=== PATIENT | female | born 1965 ===

== ENCOUNTER 2016-12-07 13:33 | Emergency (ER) | payer MEDICAID ==
[2016-12-07 13:34] VITALS: BMI 27.3
[2016-12-07 13:43] VITALS: BP 115/73; RESP 16; O2SAT 98
--- NOTE | 2016-12-07 14:05 | ED PDOC ---
Arrival/HPI - General Chief Complaint: Back Pain Time Seen by Provider: 12/07/16 13:50 Historian: Patient - History of Present Illness Narrative History of Present Illness (Text): 12/07/16 14:05 51yr old female presents today with left sided low back pain radiating into the left leg x 1 week. pt states one week ago she was bending over to get something out of the freezer and felt pain in the low back. pt state the pain was minimal at the time and has been gradually increasing. pt states the pain is now pressure like sharp and stabbing, radiating into the left leg and worse with movement. pt states while at rest the pain is very minimal but the moment she tries to twist or turn the pain increases. pt has been taking motrin for the first few days and tylenol since without improvement in the symptoms. denies bladder or bowel incontinence. denies numbness, weakness, or tingling in the extremities. no other complaints. Past Medical History - Provider Review Nursing Documentation Reviewed: Yes - Travel History Have you recently traveled outside [place] w/in the past 3 mons?: No - Infectious Disease Hx of Infectious Diseases: None - Tetanus Immunization Tetanus Immunization: Unknown - Reproductive Menopause: No - Past Medical History Past Medical History: No Previous - Cardiac Hx Cardiac Disorders: Yes Hx Hypertension: Yes - Pulmonary Hx Respiratory Disorders: No - Neurological Hx Neurological Disorder: No - HEENT Hx HEENT Disorder: No - Renal Hx Renal Disorder: No - Endocrine/Metabolic Hx Endocrine Disorders: No - Hematological/Oncological Hx Blood Disorders: Yes Hx Hepatitis C: Yes - Integumentary Hx Dermatological Disorder: No - Musculoskeletal/Rheumatological Hx Musculoskeletal Disorders: No - Gastrointestinal Hx Gastrointestinal Disorders: No - Genitourinary/Gynecological Hx Genitourinary Disorders: No - Psychiatric Hx Psychophysiologic Disorder: No Hx Depression: No Hx Emotional Abuse: No Hx Physical Abuse: No Hx Substance Use: No - Surgical History Hx Section: Yes Hx Tubal Ligation: Yes - Suicidal Assessment Feels Threatened In Home Enviroment: No Family/Social History - Physician Review Nursing Documentation Reviewed: Yes Family/Social History: Unknown Family HX Smoking Status: Never Smoked Hx Alcohol Use: No Hx Substance Use: No Hx Substance Use Treatment: No Allergies/Home Meds Allergies/Adverse Reactions: Allergies No Known Allergies Allergy (Verified 04/12/15 23:20) Home Medications: Home Meds Medication Instructions Recorded Confirmed Lisinopril [Zestril] 10 mg PO DAILY 12/07/16 12/07/16 Review of Systems - Review of Systems Constitutional: absent: Fatigue, Fevers Respiratory: absent: SOB, Cough Cardiovascular: absent: Chest Pain, Palpitations Gastrointestinal: absent: Abdominal Pain, Constipation, Diarrhea, Nausea, Vomiting Genitourinary Female: absent: Dysuria, Frequency, Hematuria Musculoskeletal: Back Pain. absent: Neck Pain Skin: absent: Rash, Pruritis Neurological: absent: Headache Physical Exam Vital Signs Reviewed: Yes Vital Signs Temp Pulse Resp BP Pulse Ox 12/07/16 15:16 98.9 F 95 H 16 98 12/07/16 13:40 99.1 F 97 H 16 115/73 98 Temperature: Afebrile Blood Pressure: Normal Pulse: Regular Respiratory Rate: Normal Appearance: Positive for: Well-Appearing, Non-Toxic, Comfortable Pain Distress: None Mental Status: Positive for: Alert and Oriented X 3 - Systems Exam Head: Present: Atraumatic Mouth: Present: Moist Mucous Membranes Neck: Present: Normal Range of Motion Respiratory/Chest: Present: Clear to Auscultation, Good Air Exchange. No: Respiratory Distress, Accessory Muscle Use Cardiovascular: Present: Regular Rate and Rhythm, Normal S1, S2. No: Murmurs Abdomen: No: Tenderness Back: Present: Normal Inspection, Paraspinal Tenderness (+ left sided low lumbar paraspinal tenderness; + sciatic foramen tenderness on left; ). No: Midline Tenderness Upper Extremity: Present: Normal ROM Lower Extremity: Present: Normal ROM. No: Swelling Neurological: Present: GCS=15 Skin: Present: Warm, Dry, Normal Color. No: Rashes Psychiatric: Present: Alert, Oriented x 3 Medical Decision Making ED Course and Treatment: 12/07/16 14:43 Patient nontoxic well-appearing in no distress with stable vital signs. Toradol, Flexeril, xray LS spine; no fracture Patient reassessment: Feeling better with medications ambulating with a steady gait. Muscle strength 5 out of 5 bilaterally. I advised to followup with the orthopedist within the next 2 days. Return if symptoms worsen persist or new symptoms develop will given 5 pills of percocet for break through pain; pt was advised of risk of addiction. Patient verbalizes understanding of discharge instructions and need for immediate followup. all aspects of this case were discussed the attending of record. Impression: Back pain Motrin every 6 hours as needed for pain Flexeril one tablet every 8 hours as needed for muscle spasms: May cause drowsiness Followup with the orthopedist within the next 2 days Followup with primary care physician within the next 2 days Return if symptoms worsen persist or if new symptoms develop - RAD Interpretation Radiology Orders: 12/07/16 14:05 LS SPINE WITH OBL > 18 YRS OLD [RAD] Stat - Medication Orders Current Medication Orders: Discontinued Medications Cyclobenzaprine HCl (Flexeril) 10 mg PO STAT STA Stop: 12/07/16 14:06 Last Admin: 12/07/16 14:20 Dose: 10 mg Ketorolac Tromethamine (Toradol) 60 mg IM STAT STA Stop: 12/07/16 14:06 Last Admin: 12/07/16 14:20 Dose: 60 mg Disposition/Present on Arrival - Present on Arrival Any Indicators Present on Arrival: No History of DVT/PE: No History of Uncontrolled Diabetes: No Urinary Catheter: No History of Decub. Ulcer: No History Surgical Site Infection Following: None - Disposition Have Diagnosis and Disposition been Completed?: Yes Diagnosis: Back pain Disposition: HOME/ ROUTINE Disposition Time: 15:04 Patient Plan: Discharge Patient Problems: Current Active Problems Problem Status Onset Back pain Acute Condition: GOOD Discharge Instructions (ExitCare): Acute Low Back Pain (ED) Additional Instructions: Motrin every 6 hours as needed for pain Flexeril one tablet every 8 hours as needed for muscle spasms: May cause drowsiness Followup with the orthopedist within the next 2 days Followup with primary care physician within the next 2 days Return if symptoms worsen persist or if new symptoms develop Prescriptions: Cyclobenzaprine [Cyclobenzaprine HCl] 10 mg PO Q8 #10 tab Ibuprofen [Motrin] 600 mg PO Q6H PRN #20 tab PRN Reason: pain/fever reduction oxyCODONE/Acetaminophen [Percocet 5/325 mg Tab] 1 tab PO Q6H PRN #5 tab PRN Reason: moderate to severe pain Referrals: Wilmer Polanco Jr., MD [Primary Care Provider] - Follow up with primary Ru Martinez MD [Staff Provider] - Follow up with primary Forms: WORK NOTE
[2016-12-07 15:17] VITALS: PULSE 95; TEMP 98.9
--- NOTE | 2016-12-07 15:32 | RAD ---
PROCEDURE: Radiographs of the Lumbar Spine. HISTORY: back pain COMPARISON: Lumbar spine radiographs performed 04/27/13 FINDINGS: BONES: Alignment appears satisfactory. No listhesis. No acute displaced fracture. DISC SPACES: Unremarkable. OTHER FINDINGS: Moderate constipation. IMPRESSION: No acute displaced fracture or subluxation.
== END 2016-12-07 15:59 | disposition home or self-care (01) ==
LOC: ED 13:33
DX: M54.5 Low back pain (principal); I10 Essential (primary) hypertension
CPT/HCPCS: 72110; 96372; 99283; J1885

== ENCOUNTER 2017-01-23 07:28 | Emergency (ER) | payer MEDICAID ==
[2017-01-23 08:01] VITALS: RESP 18; BMI 29.2
[2017-01-23 09:11] LABS: ADD MANUAL DIFF? NO
[2017-01-23 09:16] LABS: BASO # 0.03 K/mm3 (0.0-2.0); BASO % 0.4 % (0.0-3.0); EOS # 0.2 (0.0-0.7); EOS % 2.8 % (1.5-5.0); HEMATOCRIT 38.3 % (36.0-48.0); LYMPH % 43.6 % (22.0-35.0); MEAN CELL VOLUME 80.8 fL (80.0-105.0); MEAN CORPUSCULAR HEMOGLOBIN 27.2 pg (25.0-35.0); MEAN CORPUSCULAR HGB CONC 33.7 g/dl (31.0-37.0); MEAN PLATELET VOLUME 9.7 fl (7.0-11.0); MONO # 0.5 (0.1-0.6); MONO % 7.2 % (1.0-6.0); PLATELET COUNT 409 10^3/uL (120.0-450.0); RED CELL DISTRIBUTION WIDTH 13.1 % (11.5-14.5); WHITE BLOOD COUNT 6.8 10^3/ul (4.5-11.0)
--- NOTE | 2017-01-23 09:18 | ED PDOC ---
Arrival/HPI - General Chief Complaint: Abnormal Skin Integrity Time Seen by Provider: 01/23/17 08:05 Historian: Patient - History of Present Illness Narrative History of Present Illness (Text): 01/23/17 08:45 A 51 year old female, whose past medical history includes hypertension and Hepatitis C, presents to the emergency department complaining of a worsening rash for the past 3 days. Patient reports initially she developed swelling below the right eye, which has since spread to the bilateral arms, neck, bilateral ears and the left inner thigh. Rash is itchy but no painful. She denies any change in food, fever, nausea, vomiting, or any other complaints at this time. Patient mentions she has been using Benadryl and cortisone creams with no relief. PMD: Dr. Polanco Time/Duration: Other Symptom Onset: Gradual Symptom Course: Worsening Quality: Other Activities at Onset: Rest Context: Home Past Medical History - Provider Review Nursing Documentation Reviewed: Yes - Infectious Disease Hx of Infectious Diseases: None - Tetanus Immunization Tetanus Immunization: Unknown - Past Medical History Past Medical History: No Previous - Cardiac Hx Cardiac Disorders: Yes Hx Hypertension: Yes - Pulmonary Hx Respiratory Disorders: No - Neurological Hx Neurological Disorder: No - HEENT Hx HEENT Disorder: No - Renal Hx Renal Disorder: No - Endocrine/Metabolic Hx Endocrine Disorders: No - Hematological/Oncological Hx Blood Disorders: Yes Hx Hepatitis C: Yes - Integumentary Hx Dermatological Disorder: No - Musculoskeletal/Rheumatological Hx Musculoskeletal Disorders: No - Gastrointestinal Hx Gastrointestinal Disorders: No - Genitourinary/Gynecological Hx Genitourinary Disorders: No - Psychiatric Hx Psychophysiologic Disorder: No Hx Depression: No Hx Emotional Abuse: No Hx Physical Abuse: No Hx Substance Use: No - Surgical History Hx Section: Yes Hx Tubal Ligation: Yes - Anesthesia Hx Anesthesia: Yes Hx Anesthesia Reactions: No Hx Malignant Hyperthermia: No - Suicidal Assessment Feels Threatened In Home Enviroment: No Family/Social History - Physician Review Nursing Documentation Reviewed: Yes Family/Social History: No Known Family HX Smoking Status: Never Smoked Hx Alcohol Use: No Hx Substance Use: No Hx Substance Use Treatment: No Allergies/Home Meds Allergies/Adverse Reactions: Allergies No Known Allergies Allergy (Verified 01/23/17 08:01) Home Medications: Home Meds Medication Instructions Recorded Confirmed Lisinopril [Zestril] 10 mg PO DAILY 12/07/16 01/23/17 Diclofenac Sodium [Voltaren] 75 mg PO BID 01/23/17 01/23/17 Review of Systems - Physician Review All systems were reviewed & negative as marked: Yes - Review of Systems Constitutional: absent: Fevers Respiratory: absent: SOB Skin: Rash Physical Exam Vital Signs Reviewed: Yes Vital Signs Temp Pulse Resp BP Pulse Ox 01/23/17 10:10 98 F 80 18 138/87 99 01/23/17 07:55 98.3 F 86 18 148/102 H 97 Temperature: Afebrile Blood Pressure: Hypertensive Pulse: Regular Respiratory Rate: Normal Appearance: Positive for: Well-Appearing, Non-Toxic, Comfortable Pain Distress: None Mental Status: Positive for: Alert and Oriented X 3 - Systems Exam Head: Present: Atraumatic, Normocephalic, Swelling (to the right lower eyelid) Pupils: Present: PERRL Extroacular Muscles: Present: EOMI Conjunctiva: Present: Normal Mouth: Present: Moist Mucous Membranes Neck: Present: Normal Range of Motion Respiratory/Chest: Present: Clear to Auscultation, Good Air Exchange. No: Respiratory Distress, Accessory Muscle Use Cardiovascular: Present: Regular Rate and Rhythm, Normal S1, S2. No: Murmurs Abdomen: Present: Normal Bowel Sounds. No: Tenderness, Distention, Peritoneal Signs, Rebound, Guarding Back: No: CVA Tenderness Upper Extremity: Present: Normal Inspection. No: Cyanosis, Edema Lower Extremity: Present: Normal Inspection. No: Edema Neurological: Present: GCS=15, CN II-XII Intact, Speech Normal Skin: Present: Warm, Dry, Rashes (maculopapular rash to the upper bilateral shoulders, neck, and bilateral ears), Normal Color Psychiatric: Present: Alert, Oriented x 3, Normal Insight, Normal Concentration Medical Decision Making ED Course and Treatment: 01/23/17 08:45 Impression: A 51 year old female with a rash. Differential Diagnosis include but are not limited to: allergic reaction vs. contact dermatitis Plan: -- Labs -- Benadryl -- Reassess and disposition Prior Visits: Notes and results from previous visits were reviewed. The patient last presented to the emergency department on 12/07/16 for evaluation of left sided lower back pain radiating into the left lower extremity. Progress Notes: 01/23/17 09:45 On re-evaluation, the patient feels better and is in no acute distress. Patient lab work shows no significant findings. Patient will be discharged on a Medrol dose pack. She already has hydrocortisone cream and benadryl cream and tabs at home that she will continue to use. I told her not to use steroid cream on face. I have discussed the results and plan with the patient, who expresses understanding. Patient in agreement with plan to discharged home and she will follow up with her PMD and dermatology. Patient is stable for discharge. Patient was instructed to follow up with director volunteer services or return if symptoms worsen or new concerning symptoms arise. - Lab Interpretations Lab Results: 01/23/17 09:09 01/23/17 09:09 Lab Results 01/23/17 09:09: Sodium 141, Potassium 4.0, Chloride 100, Carbon Dioxide 29, Anion Gap 16, BUN 17, Creatinine 0.6, Est GFR ( Amer) > 60, Est GFR (Non- Af Amer) > 60, Random Glucose 87, Calcium 10.1, Magnesium 2.1 01/23/17 09:09: WBC 6.8 D, RBC 4.74, Hgb 12.9, Hct 38.3, MCV 80.8, MCH 27.2, MCHC 33.7, RDW 13.1, Plt Count 409, MPV 9.7, Gran % 46.0 L, Lymph % (Auto) 43.6 H, Tillman % (Auto) 7.2 H, Eos % (Auto) 2.8, Baso % (Auto) 0.4, Gran # 3.10, Lymph # 3.0, Tillman # 0.5, Eos # 0.2, Baso # 0.03 I have reviewed the lab results: Yes - Medication Orders Current Medication Orders: Discontinued Medications Diphenhydramine HCl (Benadryl) 50 mg PO STAT STA Stop: 01/23/17 08:52 Last Admin: 01/23/17 09:04 Dose: 50 mg - Scribe Statement The provider has reviewed the documentation as recorded by the Danny Aguero Provider Scribe Attestation: All medical record entries made by the Sharonibsandra were at my direction and personally dictated by me. I have reviewed the chart and agree that the record accurately reflects my personal performance of the history, physical exam, medical decision making, and the department course for this patient. I have also personally directed, reviewed, and agree with the discharge instructions and disposition. Disposition/Present on Arrival - Present on Arrival Any Indicators Present on Arrival: No History of DVT/PE: No History of Uncontrolled Diabetes: No Urinary Catheter: No History of Decub. Ulcer: No History Surgical Site Infection Following: None - Disposition Have Diagnosis and Disposition been Completed?: Yes Diagnosis: Rash Disposition: HOME/ ROUTINE Disposition Time: 09:45 Patient Plan: Discharge Condition: IMPROVED Discharge Instructions (ExitCare): Acute Rash (ED) Additional Instructions: Ms Quinonez thank you for letting us take care of you today. Your provider was Dr. Ennis. You were treated for Rash. The emergency medical care you received today was directed at your acute symptoms. If you were prescribed any medication , please fill it and take as directed. It may take several days for your symptoms to resolve. Return to the Emergency Department if your symptoms worsen , do not improve, or if you have any other problems. Please contact your doctor or call one of the physicians/clinics you have been referred to that are listed on the Patient Visit Information form that is included in your discharge packet. Bring any paperwork you were given at discharge with you along with any medications you are taking to your follow up visit. Our treatment cannot replace ongoing medical care by a primary care provider (PCP) outside of the emergency department. Thank you for allowing the [facility] team to be part of your care today. If you had an X-Ray or CT scan: A Radiologist will review the ED reading if any change in treatment is needed we will contact you. If you had a blood, urine, or wound culture: It will take several days for the results, if any change in treatment is needed we will contact you. If you had an STI test: It will take 48 hours for the results. Please call after 1 week if you have not heard back. Prescriptions: Methylprednisolone [Medrol Dose Pack (21 tabs)] 4 mg PO DAILY #21 mg Referrals: Wilmer Polanco Jr., MD [Primary Care Provider] - Follow up with primary Moy Cross MD [Staff Provider] - Follow up with primary Forms: [employer] (Croatian)
[2017-01-23 09:25] LABS: BLOOD UREA NITROGEN 17 mg/dL (7-21); CALCIUM 10.1 mg/dL (8.4-10.5); CARBON DIOXIDE 29 mmol/L (21-33); CHLORIDE 100 mmol/L (98-107); GFR AFRICAN-AMERICAN > 60; GLUCOSE,RANDOM 87 mg/dL (70-110); MAGNESIUM 2.1 mg/dL (1.7-2.2); SODIUM 141 mmol/L (132-148)
[2017-01-23 10:11] VITALS: BP 138/87; PULSE 80; TEMP 98; O2SAT 99
== END 2017-01-23 10:13 | disposition home or self-care (01) ==
LOC: ED 07:28
DX: R21 Rash and other nonspecific skin eruption (principal)